=== PATIENT | female | born 2000 | race African-American/Black ===

== ENCOUNTER 2022-04-10 21:36 | Emergency (ER) | payer OTHER, SELFPAY ==
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
[2022-04-10 21:40] VITALS: BP 128/81; PULSE 60; RESP 18; TEMP 36.4; O2SAT 100; BMI 16.1
[2022-04-10] MEDS: Morphine Sulfate 4 MG/ML CARTRIDGE IVPUSH (22:48)
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
[2022-04-10 23:00] LABS: Basophils Absolute Auto 0.1 X10*3/uL (0.0-0.2); Basophils Percent Auto 0.2 % (0-2); Eosinophils Absolute Auto 0.1 X10*3/uL (0.0-0.4); Eosinophils Percent Auto 0.2 % (0-4); Hematocrit 37.3 % (37.0-47.0); Hemoglobin 12.3 g/dl (12.0-16.0); Imm Gran Pct Auto 0.7 % (0.0-0.4); Lymphocytes Absolute Auto 2.4 X10*3/uL (1.2-4.9); MANUAL DIFF FLAG SCAN; Mean Corpuscular Hemoglobin 23.3 pg (27.0-33.0); Mean Corpuscular Volume 70.8 fL (80.0-98.0); Mean Platelet Volume 9.5 fL (9.4-12.3); Monocytes Absolute Auto 2.9 X10*3/uL (0.1-1.2); Monocytes Percent Auto 9.7 % (2-11); Neutrophils Percent Auto 81.2 % (45-73); Platelet Count 287 X10*3/uL (160-400); Red Blood Count 5.27 X10*6/uL (4.20-5.50); Red Cell Distribution Width 16.3 % (11.0-16.0); SCAN SMEAR FLAG 1; White Blood Count 29.5 X10*3/uL (4.8-10.8)
[2022-04-10 23:12] LABS: INTERNATIONAL NORM RATIO 1.2 (0.9-1.1); Prothrombin Time 13.9 SEC (10.0-13.1)
[2022-04-10 23:16] LABS: Alanine Aminotransferase 31 U/L (0-31); Albumin Level 4.5 g/dL (3.5-5.0); Alkaline Phosphatase 53 U/L (39-117); Anion Gap 15 (12-20); Aspartate Amino Transferase 41 U/L (5-31); Bilirubin Total 0.4 mg/dL (0.0-1.0); Blood Urea Nitrogen 12 mg/dL (9-16); Calcium 9.2 mg/dL (8.4-10.2); Carbon Dioxide 22 mmol/L (22-29); Chloride 104 mmol/L (96-108); Creatinine Clr Calc Pharmacy 71.1; Estimated Glomerular Filt Rate > 60; Ethanol < 10 mg/dL; Glucose Random 151 mg/dL (60-115); Magnesium 1.8 mg/dL (1.6-2.6); Sodium 138 mmol/L (135-145); Total Protein 7.2 g/dL (6.5-8.0)
[2022-04-10 23:17] LABS: COVID-19 Test Negative (Negative)
[2022-04-10 23:22] LABS: HCG Quantitative < 2 mIU/mL
[2022-04-10 23:23] LABS: SLIDE REVIEW VERIFIED
[2022-04-10] MEDS: HYDROmorphone HCl 0.5 MG/0.5 ML SYRINGE IVPUSH (23:41)
[2022-04-11] VITALS: BP 120/76; PULSE 86; O2SAT 96
[2022-04-11] MEDS: Potassium Chloride ER 20 MEQ TAB.ER.PRT 40 MEQ PO (00:43)
[2022-04-11] MEDS: iohexoL 350 MG/ML 100 ML INFUS..BTL 85 ML IV (00:55)
[2022-04-11 02:00] VITALS: BP 134/81; PULSE 77; O2SAT 97
[2022-04-11 02:50] LABS: Appearance Urine Clear; Color Urine Yellow; Glucose Urine UA Negative (Negative); Leukocyte Esterase Urine Negative (Negative); Nitrite Urine Negative (Negative); Urine Blood Trace (Negative); Urine Ketones Trace mg/dL (Negative); Urine Protein Negative (Neg-Trace)
[2022-04-11 03:01] LABS: Bacteria Urine 1+ (None Seen); Hyaline Casts Urine 0-2 /LPF (0-2); RBC Urine 0-2 /HPF (0-2); WBC Urine 0-5 /HPF (0-5)
[2022-04-11 03:02] LABS: Amphetamine Screen Urine Not Detected (Not Detect); Barbiturates, Urine Not Detected (Not Detect); Benzodiazepines Screen Urine Not Detected (Not Detect); Cannabinoid Screen Urine POSITIVE (Not Detect); Cocaine Screen Urine Not Detected (Not Detect); Fentanyl, urine Not Detected (Not Detect); Opiate Screen Urine POSITIVE (Not Detect); Phencyclidine Screen Urine Not Detected (Not Detect)
[2022-04-11] MEDS: ondansetron HCL 4 MG/2 ML VIAL IVPUSH (03:33)
[2022-04-11] MEDS: HYDROmorphone HCl 1 MG/ML SYRINGE IVPUSH ×2 (03:33→04:10)
--- NOTE | 2022-04-11 03:52 | PC.NURSE ---
provider into assess pt and review fracture. Pt continues to yell and use foul language toward staff. Pain mediation and nauesa medication offer and pt refused. pt continues to have her mother on face time while we continue to support and give her options.
--- NOTE | 2022-04-11 03:55 | PC.NURSE ---
BOGDAN Chavez ordered a posterior long arm splint. This PCT with the assist of PCT Erin Weston, PCT GRISEL, Navdeep CASEY and Sara ADAME applied the splint. PT did not tolerate well. Yelled and cursed (not at us) just cause it was in painful when we moved her arm. Got the splint applied and pt seemed to be ok with it now that she could move her arm with less pain. Put her splinted arm on a pillow to help with cushion.
[2022-04-11 04:42] VITALS: BP 128/73; PULSE 89; RESP 14; O2SAT 98
--- NOTE | 2022-04-11 04:51 | PC.NURSE ---
03:30 1 mg Dilaudid was scanned and then returned with witness, Pt the changed her mind, 04:09 1mg of Dilaudid was pulled again and given, but this RN forgot to scan.
[2022-04-11 07:37] VITALS: BP 118/60; PULSE 64; RESP 12; TEMP 36.8; O2SAT 99
[2022-04-11 10:13] VITALS: RESP 16
[2022-04-11] MEDS: Bacitracin Oint 14 GM TUBE 1 APPL TOPICAL (10:15)
== END 2022-04-11 10:24 | disposition home or self-care (01) ==
PROVIDERS: Physician Assistant; Emergency Provider Emergency Medicine
DX: S42.302A Unspecified fracture of shaft of humerus, left arm, initial encounter for closed fracture (principal); M54.2 Cervicalgia; R51.9 Headache, unspecified; R10.9 Unspecified abdominal pain; V43.62XA Car passenger injured in collision with other type car in traffic accident, initial encounter; Y93.9 Activity, unspecified; Y92.410 Unspecified street and highway as the place of occurrence of the external cause; Y99.9 Unspecified external cause status; Z20.822 Contact with and (suspected) exposure to COVID-19; Z79.899 Other long term (current) drug therapy
CPT/HCPCS: 29125; 36415; 70450; 71260; 72125; 73060; 74177; 80053; 80307; 81001; 82077; 83735; 84702; 85025; 85610; 86850; 86900; 86901; 87635; 96374; 96375; 96376; 99284; J1170; J2270; J2405; Q9967

== ENCOUNTER 2024-05-24 19:39 | Emergency (ER) | payer MEDICAID, SELFPAY ==
--- NOTE | ~2024-05-24 | XR_ITS ---
EXAMINATION: XR KNEE, LEFT CLINICAL INFORMATION: Pain and swelling COMPARISON: None available. TECHNIQUE: Four views of the left knee. FINDINGS: No fracture or joint effusion. Alignment is anatomic. Joint spaces are maintained. No abnormal soft tissue calcification. XR/XR knee LT 4V IMPRESSION: Normal left knee. Electronically signed by: Tarun Martin DO 05/24/2024 09:25 PM EDT
[2024-05-24 19:46] VITALS: BP 94/35; PULSE 66; RESP 16; TEMP 36.3; O2SAT 100; BMI 16.6
--- NOTE | 2024-05-24 19:47 | ED_ITS ---
HPI - General Adult General Chief complaint: General Medical Stated complaint: multiple complaints Time Seen by Provider: 05/24/24 22:59 Source: patient Mode of arrival: ambulatory Limitations: no limitations History of Present Illness ED Provider: philip JHA narrative: Patient complaining of intermittent vaginal bleed after having intercourse yesterday LMP was 05/07 lasted only for 2 days changes about 3 pads no active bleeding at this time patient does have history of uterine polyp in the past had ultrasound done at [facility] 2 months ago after arrival patient is also complaining of left knee pain which is going on before coming to the ED patient was able to ambulate at home in the ER patient has says that she can not even move her left leg no history of trauma left knee x-ray was negative Related Data Previous Rx's ?Medication ?Instructions ?Recorded acetaminophen 500 mg tablet 1,000 mg (2 x 500 mg) PO QID PRN 04/11/22 (Tylenol Extra Strength) fever or pain #14 tabs cephalexin 500 mg capsule 500 mg PO Q6H 10 days #40 caps 04/11/22 ibuprofen 800 mg tablet 800 mg PO Q8H PRN pain #14 tabs 04/11/22 oxycodone 5 mg tablet 5 mg PO Q6H PRN pain #14 tabs 04/11/22 ibuprofen 600 mg tablet 600 mg PO Q6H PRN fever or pain 05/25/24 #30 tabs Allergies Allergy/AdvReac Type Severity Reaction Status Date / Time bee pollen [bee stings] Allergy Severe Anaphylaxis Verified 05/24/24 19:51 Jelly Allergy Intermediate Gastrointestinal Uncoded 05/24/24 19:51 Upset Review of Systems 2 Review of Systems: Yes all other systems are reviewed and are negative PMFSH Social History Social History Advance Directives: No Advance Directives Information Provided: Yes Physical Exam ED Vital Signs: Vital Signs - 24 hr 05/24/24 19:46 05/24/24 22:58 05/24/24 23:59 Temperature 97.3 F 98.6 F 99.0 F Pulse Rate 66 60 58 Respiratory Rate 16 16 18 Blood Pressure 94/35 L 107/47 L 104/60 Pulse Oximetry 100 100 97 Oxygen Delivery Method Room Air Room Air Room Air BMI result Body Mass Index 16.6 Appearance: Alert. Oriented X3. No acute distress. Neck: Normal inspection. Neck supple. CVS: Normal heart rate and rhythm. Pulses normal. Respiratory: No respiratory distress. Equal air entry bilateral, Abdomen: Soft and nontender. Bowel sounds are present, no mass palpable, no CVA tenderness Skin: Skin warm and dry. Normal skin color. Normal skin turgor. Extremities: No lower extremity edema. No calf tenderness diffuse tenderness left knee area no swelling no joint effusion patient is refusing to cooperate to move her left leg for full examination Neuro: Oriented X 3. No motor deficit. Course Course Course Narrative: This is a rapid medical exam performed by Luca Glasgow NP: Additional HPI, ROS, PE not included below will be deferred to primary provider. Patient is a 24-year-old female with known cervical polyps presenting with complaint of dark brown vaginal bleeding which started during intercourse last night. LMP was 05/07, only lasted 1-1.5 days, reports irregular menses. Also complaining of left knee pain and swelling, unable to flex knee. Denies fall or other injury. Plan:L knee xray, labs, UA, will need pelvic exam Medications Administered Discontinued Medications Generic Name Dose Route Start Last Admin Trade Name Freq PRN Reason Stop Dose Admin Cyclobenzaprine HCl 10 mg 05/24/24 23:16 05/24/24 23:32 Cyclobenzaprine Hcl 10 Mg Tablet PO 05/24/24 23:17 10 mg ONCE ONE Administration Ketorolac Tromethamine 60 mg 05/24/24 23:15 05/24/24 23:31 Ketorolac Tromethamine 60 Mg/2 Ml Vial IM 05/24/24 23:16 60 mg ONCE ONE Administration Medical Decision Making Lab Data [facility] Lab Attestation statement: I reviewed the patient's lab results. 05/24/24 20:11 05/24/24 20:11 Labs: Lab Results 05/24/24 05/24/24 Range/Units 20:11 23:00 WBC 9.4 (4.8-10.8) X10*3/uL RBC 5.14 (4.20-5.50) X10*6/uL Hgb 12.1 (12.0-16.0) g/dl Hct 36.5 L (37.0-47.0) % MCV 71.0 L (80.0-98.0) fL MCH 23.5 L (27.0-33.0) pg MCHC 33.2 (31.0-35.0) g/dl RDW 16.8 H (11.0-16.0) % Plt Count 249 (160-400) X10*3/uL MPV 9.0 L (9.4-12.3) fL Immature Gran % (Auto) 0.2 (0.0-0.4) % Neut % (Auto) 58.2 (45-73) % Lymph % (Auto) 32.6 (20-40) % [place] % (Auto) 7.1 (2-11) % Eos % (Auto) 1.7 (0-4) % Baso % (Auto) 0.2 (0-2) % Lymph # (Auto) 3.1 (1.2-4.9) X10*3/uL [place] # (Auto) 0.7 (0.1-1.2) X10*3/uL Eos # (Auto) 0.2 (0.0-0.4) X10*3/uL Baso # (Auto) 0.0 (0.0-0.2) X10*3/uL Abs Immat Gran (auto) 0.02 (0.00-0.03) X10*3/uL Absolute Neuts (auto) 5.5 (2.0-8.3) x10*3/uL Absolute Nucleated RBC 0.000 (0.0-0.012) X10*3/uL Nucleated RBC % (auto) 0.0 (0.0-0.2) /100WBC Sodium 140 (135-145) mmol/L Potassium 4.0 (3.3-5.1) mmol/L Chloride 107 (96-108) mmol/L Carbon Dioxide 27 (22-29) mmol/L Anion Gap 10 L (12-20) BUN 8 L (9-16) mg/dL Creatinine 0.72 (0.5-1.4) mg/dL Estim Creat Clear Calc 85.5 Estimated GFR > 60 Random Glucose 86 (60-115) mg/dL Calcium 9.0 (8.4-10.2) mg/dL Total Bilirubin 0.3 (0.0-1.0) mg/dL AST 18 (5-31) U/L ALT 14 (0-31) U/L Alkaline Phosphatase 51 (39-117) U/L Total Protein 6.7 (6.5-8.0) g/dL Albumin 4.1 (3.5-5.0) g/dL Beta HCG, Quant < 2 mIU/mL Urine Color [place] Urine Appearance Hazy Urine pH 6.5 (5.0-9.0) Ur Specific [place] 1.025 (1.005-1.025) Urine Protein 30 (1+) H (Neg-Trace) mg/dL Urine Glucose (UA) Negative (Negative) mg/dL Urine Ketones Negative (Negative) mg/dL Urine Blood Large (3+) H (Negative) Urine Nitrite Negative (Negative) Ur Leukocyte Esterase Negative (Negative) Urine RBC >20 H (0-2) /HPF Urine WBC 0-5 (0-5) /HPF Ur Squamous Epith Cells 11-20 (0-2) /HPF Urine Bacteria 2+ (None Seen) Hyaline Casts 0-2 (0-2) /LPF Independent Interpretation I performed an independent interpretation of an: Plain X-Ray Radiology Impression Discussion of test interpretation with radiology: I have reviewed the radiologist's reading. Radiologist Impression: Negative left knee xray Discharge Plan Discharge Clinical Impression: Knee sprain, DUB (dysfunctional uterine bleeding) Patient Disposition: Home, Self-Care Instructions: Dysfunctional Uterine Bleeding (ED), Knee Sprain (ED) Additional Instructions: Take ibuprofen for pain Donato wrap for support Follow with special education paraeducator about vaginal bleed if continues Prescriptions: New ibuprofen 600 mg tablet 600 mg PO Q6H PRN (Reason: fever or pain) Qty: 30 0RF No Action oxycodone 5 mg tablet 5 mg PO Q6H PRN (Reason: pain) Qty: 14 0RF Rx Instructions: Partial Fill upon patient request. cephalexin 500 mg capsule 500 mg PO Q6H 10 Days Qty: 40 0RF ibuprofen 800 mg tablet 800 mg PO Q8H PRN (Reason: pain) Qty: 14 0RF acetaminophen [Tylenol Extra Strength] 500 mg tablet 1,000 mg PO QID PRN (Reason: fever or pain) Qty: 14 0RF Referrals: Lorne Quijano MD [Physician] - 2 weeks Print Language: Malian
[2024-05-24 20:15] LABS: MANUAL DIFF FLAG NO
[2024-05-24 20:18] LABS: Basophils Percent Auto 0.2 % (0-2); Eosinophils Absolute Auto 0.2 X10*3/uL (0.0-0.4); Eosinophils Percent Auto 1.7 % (0-4); Hematocrit 36.5 % (37.0-47.0); Hemoglobin 12.1 g/dl (12.0-16.0); Imm Gran Abs Auto 0.02 X10*3/uL (0.00-0.03); Imm Gran Pct Auto 0.2 % (0.0-0.4); Lymphocytes Absolute Auto 3.1 X10*3/uL (1.2-4.9); Lymphocytes Percent Auto 32.6 % (20-40); Mean Corpuscular HGB Conc 33.2 g/dl (31.0-35.0); Mean Corpuscular Hemoglobin 23.5 pg (27.0-33.0); Monocytes Absolute Auto 0.7 X10*3/uL (0.1-1.2); Monocytes Percent Auto 7.1 % (2-11); Neutrophils Absolute Auto 5.5 x10*3/uL (2.0-8.3); Neutrophils Percent Auto 58.2 % (45-73); Platelet Count 249 X10*3/uL (160-400); Red Blood Count 5.14 X10*6/uL (4.20-5.50); Red Cell Distribution Width 16.8 % (11.0-16.0); White Blood Count 9.4 X10*3/uL (4.8-10.8)
[2024-05-24 20:47] LABS: Alanine Aminotransferase 14 U/L (0-31); Albumin Level 4.1 g/dL (3.5-5.0); Alkaline Phosphatase 51 U/L (39-117); Anion Gap 10 (12-20); Aspartate Amino Transferase 18 U/L (5-31); Bilirubin Total 0.3 mg/dL (0.0-1.0); Blood Urea Nitrogen 8 mg/dL (9-16); Carbon Dioxide 27 mmol/L (22-29); Chloride 107 mmol/L (96-108); Creatinine Clr Calc Pharmacy 85.5; Estimated Glomerular Filt Rate > 60; Glucose Random 86 mg/dL (60-115); Sodium 140 mmol/L (135-145); Total Protein 6.7 g/dL (6.5-8.0)
[2024-05-24 21:00] LABS: HCG Quantitative < 2 mIU/mL
[2024-05-24 22:58] VITALS: BP 107/47; PULSE 60; RESP 16; TEMP 37; O2SAT 100
[2024-05-24 23:23] LABS: Appearance Urine Hazy; Color Urine Orange; Glucose Urine UA Negative (Negative); Leukocyte Esterase Urine Negative (Negative); Nitrite Urine Negative (Negative); PH 6.5 (5.0-9.0); Specific Gravity - Urine 1.025 (1.005-1.025); UMIC TRIGGER UACC YES; Urine Blood Large (3+) (Negative); Urine Ketones Negative (Negative); Urine Protein 30 (1+) mg/dL (Neg-Trace)
[2024-05-24 23:25] LABS: Bacteria Urine 2+ (None Seen); Hyaline Casts Urine 0-2 /LPF (0-2); RBC Urine >20 /HPF (0-2); WBC Urine 0-5 /HPF (0-5)
[2024-05-24] MEDS: Ketorolac Tromethamine 60 MG/2 ML VIAL IM (23:31)
[2024-05-24] MEDS: Cyclobenzaprine HCl 10 MG TABLET PO (23:32)
[2024-05-24 23:59] VITALS: BP 104/60; PULSE 58; RESP 18; TEMP 37.2; O2SAT 97
[2024-05-25 00:50] VITALS: BP 104/60; PULSE 58; RESP 18; TEMP 37.2; O2SAT 97
[2024-05-27 17:04] LABS: A. Phagocytphilium DNA,RT-PCR NOT DETECTED (NOT DETECTED); Babesia Microti DNA, RT-PCR NOT DETECTED (NOT DETECTED); Borrelia Miyamotoi,DNA RT-PCR NOT DETECTED (NOT DETECTED); E.Chaffeensis DNA RT-PCR NOT DETECTED (NOT DETECTED); Lyme(Borrelia ssp)DNA RT-PCR NOT DETECTED (NOT DETECTED)
== END 2024-05-25 00:50 | disposition home or self-care (01) ==
PROVIDERS: Registered Nurse Emergency; Emergency Provider Internal Medicine
DX: N93.8 Other specified abnormal uterine and vaginal bleeding (principal); S83.92XA Sprain of unspecified site of left knee, initial encounter; X58.XXXA Exposure to other specified factors, initial encounter; R10.31 Right lower quadrant pain; M25.562 Pain in left knee; Z79.899 Other long term (current) drug therapy; Y93.9 Activity, unspecified; Y92.9 Unspecified place or not applicable; Y99.9 Unspecified external cause status
CPT/HCPCS: 36415; 73564; 80053; 81001; 84702; 85025; 87468; 87469; 87478; 87484; 87798; 96372; 99284; J1885